=== PATIENT | male | born 1995 | race African-American/Black ===

== ENCOUNTER 2018-10-08 17:50 | Emergency (ER) | payer OTHER, MEDICAID ==
[~2018-10-08] VITALS: Ht 182.9 cm; Wt 83.0 kg
[2018-10-08] MEDS ORDERED: IBUPROFEN 600MG TABLET PO ONE (19:45)
[2018-10-08 20:02] VITALS: BP 145/80
== END 2018-10-08 20:03 | disposition home or self-care (01) ==
LOC: ER 17:50
DX: S02.5XXD Fracture of tooth (traumatic), subsequent encounter for fracture with routine healing (principal); K02.9 Dental caries, unspecified; K08.89 Other specified disorders of teeth and supporting structures; X58.XXXD Exposure to other specified factors, subsequent encounter
CPT/HCPCS: 99282

== ENCOUNTER 2021-06-30 20:18 | Emergency (ER) | payer MEDICARE, OTHER, MEDICAID ==
[~2021-06-30] VITALS: Ht 177.8 cm; Wt 77.0 kg
[2021-06-30 20:35] VITALS: BP 124/80
[2021-06-30] MEDS ORDERED: VISCOUS LIDOCAINE 2% 15 ML UDC PO ONE (20:45)
[2021-06-30] MEDS ORDERED: MAGNESIUM/ALUMINUM HYDROXIDE/SIMETHICONE 30ML UDC PO ONE (20:45)
[2021-06-30] MEDS ORDERED: ASPIRIN 81MG TABLET PO ONE (20:45)
[2021-06-30 20:53] LABS: BASOPHILS % 0.4 % (0.0-2.0); EOSINOPHILS % 0.7 % (0.0-5.0); HEMATOCRIT. 40.9 % (42.0-52.0); HEMOGLOBIN. 13.5 g/dL (14.0-18.0); LYMPHOCYTES % 20.4 % (20.0-50.0); MEAN CORPUSCULAR HEMOGLOBIN 27.1 pg (28.0-32.0); MEAN CORPUSCULAR VOLUME 82.1 fL (80.0-94.0); MEAN PLATELET VOLUME 7.4 fl (7.4-10.4); MONOCYTES % 8.5 % (2.0-8.0); PLATELET 304 x1000/uL (130-400); RED BLOOD CELL COUNT 4.99 mill/uL (4.7-6.1)
[2021-06-30 21:00] LABS: CHLORIDE 105 mEq/L (98-107)
[2021-06-30] MEDS ORDERED: POTASSIUM CHLORIDE 20MEQ TABLET SR PO NR (21:15)
== END 2021-06-30 21:42 | disposition left against medical advice (07) ==
LOC: ER 20:18
DX: R07.89 Other chest pain (principal); F41.9 Anxiety disorder, unspecified; E87.6 Hypokalemia; F17.200 Nicotine dependence, unspecified, uncomplicated; F12.10 Cannabis abuse, uncomplicated; I10 Essential (primary) hypertension; Z98.890 Other specified postprocedural states
CPT/HCPCS: 36415; 71045; 80053; 83880; 84484; 85025; 93005; 99285

== ENCOUNTER 2023-02-07 17:32 | Emergency (ER) | payer MEDICARE, OTHER ==
[~2023-02-07] VITALS: Ht 188 cm; Wt 95.0 kg
[2023-02-07 17:50] VITALS: BP 124/83
[2023-02-07] MEDS ORDERED: T3 PO (19:13)
[2023-02-07] MEDS ORDERED: AMOX1TAB16 PO (19:13)
[2023-02-07] MEDS ORDERED: CHLO473M2 PO (19:13)
== END 2023-02-07 19:39 | disposition home or self-care (01) ==
LOC: ER 17:32
DX: K04.7 Periapical abscess without sinus (principal); F41.9 Anxiety disorder, unspecified; I10 Essential (primary) hypertension; F12.10 Cannabis abuse, uncomplicated
CPT/HCPCS: 99283

== ENCOUNTER 2024-06-13 13:40 | Emergency (ER) | payer MEDICAID, MEDICARE ==
[~2024-06-13] VITALS: Ht 188 cm; Wt 88.0 kg
[~2024-06-13 13:40] MED LIST: AMOX1TAB16 PO; CHLO473M2 PO; T3 PO
[2024-06-13 13:46] VITALS: BP 109/76; RESP 16; TEMP 98; O2SAT 100
[2024-06-13 14:06] VITALS: PULSE 112; O2SAT 98
[2024-06-13] MEDS ORDERED: KETOROLAC 30MG/ML VIAL IM STA (14:56)
[2024-06-13] MEDS ORDERED: BACITRACIN ZINC OINT UDPKT TOP ONE (15:00)
[2024-06-13] MEDS ORDERED: LIDOCAINE HCL/PF 1% 10 MG/ML 5ML VIAL INFIL ONE (15:00)
[2024-06-14] MEDS ORDERED: SULF1TAB48 PO (08:50)
[2024-06-14] MEDS ORDERED: CEPH500C2 PO (08:50)
[2024-06-14] MEDS ORDERED: TOPUD PO (08:50)
== END 2024-06-13 19:53 | disposition home or self-care (01) ==
LOC: ER 13:40
DX: L02.31 Cutaneous abscess of buttock (principal); F41.9 Anxiety disorder, unspecified; F12.90 Cannabis use, unspecified, uncomplicated; I10 Essential (primary) hypertension; Z79.899 Other long term (current) drug therapy
CPT/HCPCS: 99281

== ENCOUNTER 2024-06-14 07:54 | Emergency (ER) | payer MEDICAID ==
[~2024-06-14] VITALS: Ht 188 cm; Wt 95.0 kg
[2024-06-14 08:00] VITALS: TEMP 98; O2SAT 100
[2024-06-14] MEDS ORDERED: TOPUD PO (08:50)
[2024-06-14] MEDS ORDERED: SULF1TAB48 PO (08:50)
[2024-06-14] MEDS ORDERED: CEPH500C2 PO (08:50)
[2024-06-14] MEDS: LIDOCAINE HCL/EPINEPHRINE 1%-EPI 1:100,000 20ML VIAL INFIL ONE (08:51)
[2024-06-14 09:26] VITALS: BP 162/71; PULSE 89; RESP 17; O2SAT 99
== END 2024-06-14 09:28 | disposition home or self-care (01) ==
LOC: ER 07:54
DX: L02.31 Cutaneous abscess of buttock (principal); F12.10 Cannabis abuse, uncomplicated; I10 Essential (primary) hypertension; Z98.890 Other specified postprocedural states; Z86.59 Personal history of other mental and behavioral disorders
CPT/HCPCS: 10060; 99284; J3490; Z7610 ×3

== ENCOUNTER 2024-11-24 21:03 | Emergency (ER) | payer SELFPAY ==
[~2024-11-24] VITALS: Ht 188 cm; Wt 95.0 kg
[~2024-11-24 21:03] MED LIST changes: +CEPH500C2 PO; +SULF1TAB48 PO; +TOPUD PO
[2024-11-24 21:14] VITALS: O2SAT 98
[2024-11-24 22:19] VITALS: TEMP 37.1; O2SAT 98
[2024-11-24 22:20] VITALS: BP 120/72; PULSE 78; RESP 19
[2024-11-24] MEDS: KETOROLAC 30MG/ML VIAL IM STA (22:20)
== END 2024-11-24 22:23 | disposition home or self-care (01) ==
LOC: ER 21:03
DX: M79.652 Pain in left thigh (principal); F41.9 Anxiety disorder, unspecified; I10 Essential (primary) hypertension; F12.90 Cannabis use, unspecified, uncomplicated; Z79.899 Other long term (current) drug therapy; V09.9XXA Pedestrian injured in unspecified transport accident, initial encounter; Y93.89 Activity, other specified; Y92.481 Parking lot as the place of occurrence of the external cause; Y99.8 Other external cause status
CPT/HCPCS: 73552; 99283; J1885

== ENCOUNTER 2025-07-28 10:46 | Emergency (ER) | payer OTHER, MEDICARE ==
[~2025-07-28] VITALS: Ht 188 cm; Wt 97.0 kg
[2025-07-28 10:54] VITALS: O2SAT 100
[2025-07-28] MEDS: ACETAMINOPHEN 325MG TABLET PO ONE (12:03)
[2025-07-28] MEDS: TETANUS, DIPHTHERIA, PERTUSSIS VAC/PF 0.5ML (>10YR OLD) IM ONE (12:04)
[2025-07-28 13:20] VITALS: BP 105/76; PULSE 65; RESP 12; TEMP 36.8; O2SAT 100
[2025-07-28] MEDS ORDERED: LIDOCAINE HCL/EPINEPHRINE 1%-EPI 1:100,000 20ML VIAL INFIL ONE (13:45)
[2025-07-28] MEDS ORDERED: IBUP-1455 MT (13:55)
[2025-07-28] MEDS ORDERED: METH-773 MT (13:55)
== END 2025-07-28 14:10 | disposition home or self-care (01) ==
LOC: ER 10:46
DX: S01.81XA Laceration without foreign body of other part of head, initial encounter (principal); F41.9 Anxiety disorder, unspecified; I10 Essential (primary) hypertension; F17.200 Nicotine dependence, unspecified, uncomplicated; F12.90 Cannabis use, unspecified, uncomplicated; V49.9XXA Car occupant (driver) (passenger) injured in unspecified traffic accident, initial encounter; Y93.89 Activity, other specified; Y92.410 Unspecified street and highway as the place of occurrence of the external cause; Y99.8 Other external cause status
CPT/HCPCS: 70486; 90715; 99284

== ENCOUNTER 2025-08-21 08:22 | Emergency (ER) | payer MEDICARE, OTHER ==
[~2025-08-21] VITALS: Ht 182.9 cm; Wt 91.0 kg
[~2025-08-21 08:22] MED LIST changes: +IBUP-1455 MT; +METH-773 MT
[2025-08-21 08:25] VITALS: BP 134/91; RESP 18; TEMP 36.8; O2SAT 100
[2025-08-21 08:31] VITALS: PULSE 79; O2SAT 98
[2025-08-21] MEDS: AMOXICILLIN/POTASSIUM CLAVULANATE 875/125MG TAB PO ONE (09:00)
[2025-08-21] MEDS ORDERED: AMOX1TAB16 MT (09:07)
== END 2025-08-21 09:23 | disposition home or self-care (01) ==
LOC: ER 08:22
DX: H04.301 Unspecified dacryocystitis of right lacrimal passage (principal); I10 Essential (primary) hypertension; F41.9 Anxiety disorder, unspecified; F12.90 Cannabis use, unspecified, uncomplicated
CPT/HCPCS: 99283